=== PATIENT | female | born 1980 | race Two or more races ===

== ENCOUNTER 2016-10-20 07:08 | Emergency (ER) | payer MEDICAID ==
[~2016-10-20] VITALS: Ht 165.1 cm; Wt 77.1 kg
[~2016-10-20 07:08] MED LIST: CHOL200010 PO; FAM20T PO; FERR-7 PO; IBU800T PO; POTA-167 PO
[2016-10-20 08:26] LABS: Basophils # (auto) 0 uL; Basophils % (auto) 0.4 % (0.0-2.0); DEFINITIVE VIEW TRANSMISSION; Eosinophils # (auto) 0.1 uL; Hematocrit 33.7 % (36.0-46.0); Hemoglobin 10.8 g/dL (12.2-16.2); Lymphocytes # (auto) 2.2 uL; Lymphocytes % (auto) 26.8 % (10.0-50.0); Mean Corpuscular Hemoglobin 25.1 pg (28.0-32.0); Mean Corpuscular Volume 78.6 fL (80.0-100.0); Monocytes # (auto) 0.6 uL; Monocytes % (auto) 6.8 % (0.0-12.0); Neutrophils # (auto) 5.3 uL; Platelet Count (auto) 313 10^3/uL (140-450); Red Cell Distribution Width 17.2 % (11.6-16.0); White Blood Cell 8.1 10^3/uL (4.4-10.8)
[2016-10-20 08:47] LABS: Albumin 3.2 g/dL (3.4-5.0); BUN/Creatinine Ratio 21.1; Calcium 8.6 mg/dL (8.5-10.1); Potassium 3.9 mmol/L (3.5-5.1)
[2016-10-20 08:50] LABS: Bilirubin, Total 0.4 mg/dL (0.2-1.0); Total Protein 7.7 g/dL (6.4-8.2)
[2016-10-20] MEDS ORDERED: HYDROmorphone HCL 2 MG/ML VL IV ONE (12:15)
[2016-10-20] MEDS ORDERED: SODIUM CHLORIDE 0.9% 1,000 ML IV ONE (12:15)
[2016-10-20] MEDS ORDERED: ONDANSETRON HCL 4 MG/2 ML VIAL IV ONE (12:15)
[2016-10-20 13:26] LABS: Urine Bilirubin Negative (Negative); Urine Color Red (Yellow); Urine Glucose Normal (Normal); Urine Ketone Negative (Negative); Urine Mucus FEW (None Seen); Urine Nitrite Negative (Negative); Urine RBC 1182 /hpf (0 - 4); Urine Squamous Epithelial Cell FEW /hpf (<5); Urine Urobilinogen Normal (Negative); Urine pH 5.5 (5.0-8.0)
[2016-10-20 13:27] LABS: Urine Blood 3+ /uL (Negative)
[2016-10-20 13:51] VITALS: BP 121/77
== END 2016-10-20 15:33 | disposition home or self-care (01) ==
LOC: ER 07:08
DX: N39.0 Urinary tract infection, site not specified (principal); Z85.038 Personal history of other malignant neoplasm of large intestine; K91.2 Postsurgical malabsorption, not elsewhere classified; Z88.1 Allergy status to other antibiotic agents; Z88.6 Allergy status to analgesic agent
CPT/HCPCS: 36415; 74176; 80053; 81001; 85025; 96361; 96374; 96375; 99285; J1170; J2405; J7030

== ENCOUNTER 2017-01-19 17:47 | Emergency (ER) | payer MEDICAID ==
[~2017-01-19] VITALS: Ht 165.1 cm; Wt 80.7 kg
[~2017-01-19 17:47] MED LIST changes: -IBU800T PO; +IBUP800T24 PO
[2017-01-19] MEDS ORDERED: KETOROLAC TROMETH 60MG/2ML VIAL IM ONE (18:15)
[2017-01-19 19:28] VITALS: BP 114/76
== END 2017-01-19 20:09 | disposition home or self-care (01) ==
LOC: ER 17:48
DX: M25.531 Pain in right wrist (principal); Z88.6 Allergy status to analgesic agent; Z88.1 Allergy status to other antibiotic agents; Z98.51 Tubal ligation status; V49.40XA Driver injured in collision with unspecified motor vehicles in traffic accident, initial encounter; Y93.89 Activity, other specified; Y99.8 Other external cause status; Y92.89 Other specified places as the place of occurrence of the external cause
CPT/HCPCS: 73110; 96372; 99284; J1885

== ENCOUNTER 2017-09-18 17:15 | Emergency (ER) | payer MEDICAID, OTHER ==
[~2017-09-18] VITALS: Ht 165.1 cm; Wt 81.2 kg
[~2017-09-18 17:15] MED LIST changes: -CHOL200010 PO; -FAM20T PO; -FERR-7 PO; -POTA-167 PO
[2017-09-18 18:59] LABS: Eosinophils # (auto) 0.1 uL; Eosinophils % (auto) 0.8 % (0.0-7.0); Hemoglobin 11.2 g/dL (12.2-16.2); Monocytes # (auto) 0.7 uL; Monocytes % (auto) 6.5 % (0.0-12.0); Nucleated Red Blood Cells % 0.1 %; White Blood Cell 10.1 10^3/uL (4.4-10.8)
[2017-09-18 19:00] LABS: Basophils # (auto) 0.1 uL; Basophils % (auto) 0.6 % (0.0-2.0); Hematocrit 34.4 % (36.0-46.0); Lymphocytes % (auto) 19.9 % (10.0-50.0); Mean Corpuscular Hemoglobin 26.1 pg (28.0-32.0); Mean Corpuscular Hgb Conc. 32.6 g/dL (32.0-36.0); Mean Corpuscular Volume 80.2 fL (80.0-100.0); Neutrophils # (auto) 7.3 uL; Neutrophils % (auto) 72.2 % (37.0-80.0); Platelet Count (auto) 268 10^3/uL (140-450); Red Blood Cells 4.29 10^6/uL (4.0-5.20); Red Cell Distribution Width 16.9 % (11.8-14.3)
[2017-09-18 19:21] LABS: Albumin 3.7 g/dL (3.4-5.0); BUN/Creatinine Ratio 13.2; Bilirubin, Total 0.3 mg/dL (0.2-1.0); Calcium 8.8 mg/dL (8.5-10.1); Potassium 3.5 mmol/L (3.5-5.1); Total Protein 8.1 g/dL (6.4-8.2)
[2017-09-18 19:59] LABS: Urine Bacteria FEW /hpf (None Seen); Urine Blood Negative /uL (Negative); Urine Mucus FEW (None Seen); Urine Specific Gravity 1.012 (1.001-1.035); Urine WBC 1 /hpf (0 - 5)
[2017-09-19] MEDS ORDERED: HYDROcodone-ACET 10/325MG TAB PO ONE (02:45)
[2017-09-19] MEDS ORDERED: IOHEXOL 300 MG/ML 100ML BOTTLE IJ ONE (08:34)
[2017-09-19 11:02] VITALS: BP 100/71
== END 2017-09-19 12:27 | disposition home or self-care (01) ==
LOC: ER 17:24
DX: E86.0 Dehydration (principal); R51 Headache; Z98.890 Other specified postprocedural states; Z98.51 Tubal ligation status
CPT/HCPCS: 36415; 71046; 74177; 80053; 81001; 81025; 84550; 85025; 85379; 93005; 99284; Q9967

== ENCOUNTER 2018-09-11 16:56 | Emergency (ER) | payer MEDICAID ==
[~2018-09-11] VITALS: Ht 165.1 cm; Wt 81.6 kg
[2018-09-11 17:53] LABS: Basophils # (auto) 0 uL; Basophils % (auto) 0.5 % (0.0-2.0); Eosinophils # (auto) 0.2 uL; Hematocrit 35.8 % (36.0-46.0); Hemoglobin 11.6 g/dL (12.2-16.2); Lymphocytes # (auto) 2.1 uL; Lymphocytes % (auto) 32.4 % (10.0-50.0); Mean Corpuscular Hemoglobin 27.6 pg (28.0-32.0); Mean Corpuscular Hgb Conc. 32.3 g/dL (32.0-36.0); Mean Corpuscular Volume 85.6 fL (80.0-100.0); Monocytes # (auto) 0.4 uL; Neutrophils # (auto) 3.7 uL; Neutrophils % (auto) 58.1 % (37.0-80.0); Nucleated Red Blood Cells % 0.1 %; Platelet Count (auto) 284 10^3/uL (140-450); Red Blood Cells 4.18 10^6/uL (4.0-5.20); Red Cell Distribution Width 16.8 % (11.8-14.3); White Blood Cell 6.4 10^3/uL (4.4-10.8)
[2018-09-11 18:03] LABS: Potassium 3.2 mmol/L (3.5-5.1)
[2018-09-11 18:07] LABS: Albumin 3.5 g/dL (3.4-5.0); Calcium 8.5 mg/dL (8.5-10.1)
[2018-09-11 18:11] LABS: Bilirubin, Total 0.3 mg/dL (0.2-1.0); Total Protein 7.5 g/dL (6.4-8.2)
[2018-09-11] MEDS ORDERED: POTASSIUM CHL 10% (20 MEQ/15ML) 15ml ORAL SOLN PO ONE (19:15)
[2018-09-11 21:24] VITALS: BP 131/95
[2018-09-11] MEDS ORDERED: ONDANSETRON HCL 4 MG/2 ML VIAL ONE (21:49)
[2018-09-11] MEDS ORDERED: ONDANSETRON HCL 4 MG/2 ML VIAL IV ONE (22:00)
== END 2018-09-11 22:09 | disposition home or self-care (01) ==
LOC: ER 16:56
DX: E87.6 Hypokalemia (principal); Z98.51 Tubal ligation status; Z85.038 Personal history of other malignant neoplasm of large intestine; Z88.1 Allergy status to other antibiotic agents; Z88.6 Allergy status to analgesic agent
CPT/HCPCS: 36415; 74176; 80053; 83690; 85025; 96374; 99284; J2405

== ENCOUNTER 2019-11-14 17:46 | Inpatient (IN) | payer MEDICAID ==
[~2019-11-14] VITALS: Ht 167.6 cm; Wt 90.6 kg
[2019-11-14 18:33] LABS: Basophils # (auto) 0 10 ^3/uL (0-0.2); Basophils % (auto) 0.7 % (0.0-2.0); Eosinophils # (auto) 0.1 10 ^3/uL (0-0.8); Eosinophils % (auto) 1.4 % (0.0-7.0); Hematocrit 36.2 % (36.0-46.0); Lymphocytes # (auto) 2.5 10 ^3/uL (0.4-5.4); Lymphocytes % (auto) 36.9 % (10.0-50.0); Mean Corpuscular Hemoglobin 29.2 pg (28.0-32.0); Mean Corpuscular Hgb Conc. 33.3 g/dL (32.0-36.0); Mean Corpuscular Volume 87.7 fL (80.0-100.0); Monocytes # (auto) 0.4 10 ^3/uL (0-1.3); Neutrophils # (auto) 3.7 10 ^3/uL (1.6-8.6); Platelet Count (auto) 268 10^3/uL (140-450); Red Blood Cells 4.12 10^6/uL (4.0-5.20); Red Cell Distribution Width 14.8 % (11.8-14.3); White Blood Cell 6.7 10^3/uL (4.4-10.8)
[2019-11-14 18:48] LABS: Alanine Aminotransferase 39 U/L (13-56); Albumin 3.4 g/dL (3.4-5.0); Anion Gap 5 (5-15); Aspartate Aminotransferase 20 U/L (15-37); BUN/Creatinine Ratio 19.4; Blood Urea Nitrogen 12 mg/dL (7-18); Calcium 8.4 mg/dL (8.5-10.1); Carbon Dioxide 29 mmol/L (21-32); Chloride 105 mmol/L (98-107); GFR African American 136 mL/min; GFR Non-African American 113 mL/min; Glucose 111 mg/dL (74-106); Potassium 3.4 mmol/L (3.5-5.1); Sodium 139 mmol/L (136-145)
[2019-11-14 18:53] LABS: Alkaline Phosphatase 103 U/L (45-117); Bilirubin, Total 0.4 mg/dL (0.2-1.0); Total Protein 7.3 g/dL (6.4-8.2)
[2019-11-14] MEDS: SODIUM CHLORIDE 0.9% 1,000 ML IV SCH (22:11)
[2019-11-14] MEDS ORDERED: NITROGLYCERIN 0.4 MG SL TAB SL PRN (22:15)
[2019-11-14] MEDS ORDERED: LORazepam 0.5 MG TAB PO PRN (22:15)
[2019-11-14] MEDS ORDERED: ONDANSETRON HCL 4 MG/2 ML VIAL IV PRN (22:15)
[2019-11-14] MEDS ORDERED: ZOLPIDEM TARTRATE 5 MG TAB PO PRN (22:15)
[2019-11-15] MEDS: ACETAMINOPHEN 325 MG TAB PO PRN ×2 (01:20→18:40)
[2019-11-15 05:00] VITALS: BP 100/67
[2019-11-15 07:21] LABS: Basophils # (auto) 0 10 ^3/uL (0-0.2); Basophils % (auto) 0.3 % (0.0-2.0); Eosinophils # (auto) 0.1 10 ^3/uL (0-0.8); Eosinophils % (auto) 1.6 % (0.0-7.0); Hematocrit 35.5 % (36.0-46.0); Hemoglobin 11.8 g/dL (12.2-16.2); Lymphocytes % (auto) 32.2 % (10.0-50.0); Mean Corpuscular Hemoglobin 28.9 pg (28.0-32.0); Mean Corpuscular Hgb Conc. 33.2 g/dL (32.0-36.0); Mean Corpuscular Volume 87.3 fL (80.0-100.0); Monocytes # (auto) 0.3 10 ^3/uL (0-1.3); Monocytes % (auto) 5.5 % (0.0-12.0); Neutrophils # (auto) 3.7 10 ^3/uL (1.6-8.6); Neutrophils % (auto) 60.4 % (37.0-80.0); Platelet Count (auto) 256 10^3/uL (140-450); Red Blood Cells 4.07 10^6/uL (4.0-5.20); Red Cell Distribution Width 14.8 % (11.8-14.3); White Blood Cell 6.1 10^3/uL (4.4-10.8)
[2019-11-15 07:32] LABS: BUN/Creatinine Ratio 19.6; Potassium 3.5 mmol/L (3.5-5.1)
[2019-11-15 08:00] VITALS: BP 101/69
[2019-11-15 08:51] VITALS: BP 101/69
[2019-11-15] MEDS: DOCUSATE SOD 100 MG CAP PO SCH (10:00)
[2019-11-15] MEDS: ASPirin 81 mg TAB PO SCH (11:12)
[2019-11-15] MEDS: CLOPIDOGREL BISULFATE 75 MG TAB PO SCH (11:13)
[2019-11-15] MEDS: CARVEDILOL 3.125 MG TAB PO SCH ×2 (11:13→22:00)
[2019-11-15] MEDS: LISINOPRIL 10 MG TAB PO SCH (11:14)
[2019-11-15] MEDS: SODIUM CHLORIDE 0.9% 1,000 ML IV SCH (11:14)
[2019-11-15] MEDS ORDERED: IOHEXOL 350 MG/ML 100ML IJ ONE (12:30)
[2019-11-15 13:02] VITALS: BP 108/71
[2019-11-15] MEDS ORDERED: diphenhdrAMINE HCL 50 MG/1 ML VL IM ONE (13:30)
[2019-11-15] MEDS ORDERED: DexAMETHasone SOD PHOS 4 MG/1ML SDV INJ IV ONE (13:30)
[2019-11-15 16:46] VITALS: BP 111/65
[2019-11-15 22:00] VITALS: BP 100/62
[2019-11-15] MEDS: ATORVASTATIN 20 MG TAB PO SCH (22:00)
[2019-11-16 05:00] VITALS: BP 107/79
[2019-11-16] MEDS: SODIUM CHLORIDE 0.9% 1,000 ML IV SCH ×2 (05:30→14:30)
[2019-11-16 06:36] LABS: Basophils # (auto) 0 10 ^3/uL (0-0.2); Basophils % (auto) 0.1 % (0.0-2.0); Eosinophils # (auto) 0 10 ^3/uL (0-0.8); Eosinophils % (auto) 0.1 % (0.0-7.0); Hemoglobin 11.9 g/dL (12.2-16.2); Lymphocytes # (auto) 2.1 10 ^3/uL (0.4-5.4); Lymphocytes % (auto) 23.9 % (10.0-50.0); Mean Corpuscular Hemoglobin 29.2 pg (28.0-32.0); Mean Corpuscular Volume 88.6 fL (80.0-100.0); Monocytes # (auto) 0.4 10 ^3/uL (0-1.3); Monocytes % (auto) 4.8 % (0.0-12.0); Neutrophils # (auto) 6.1 10 ^3/uL (1.6-8.6); Neutrophils % (auto) 71.1 % (37.0-80.0); Nucleated Red Blood Cells % 0.1 %; Platelet Count (auto) 245 10^3/uL (140-450); Red Blood Cells 4.06 10^6/uL (4.0-5.20); Red Cell Distribution Width 14.9 % (11.8-14.3); White Blood Cell 8.6 10^3/uL (4.4-10.8)
[2019-11-16 06:47] LABS: Potassium 3.5 mmol/L (3.5-5.1)
[2019-11-16 07:13] LABS: BUN/Creatinine Ratio 13.8; Calcium 8.6 mg/dL (8.5-10.1)
[2019-11-16] MEDS: DOCUSATE SOD 100 MG CAP PO SCH (10:00)
[2019-11-16] MEDS: CLOPIDOGREL BISULFATE 75 MG TAB PO SCH (10:00)
[2019-11-16] MEDS: ASPirin 81 mg TAB PO SCH (10:00)
[2019-11-16] MEDS: LISINOPRIL 10 MG TAB PO SCH (10:00)
[2019-11-16] MEDS ORDERED: KETOROLAC TROMETH 30 MG/ML 1ML VIAL IV PRN (10:00)
[2019-11-16 10:58] VITALS: BP 122/76
[2019-11-16 13:00] VITALS: BP 113/68
[2019-11-16 17:00] VITALS: BP 100/57
[2019-11-16] MEDS: ATORVASTATIN 20 MG TAB PO SCH (21:18)
[2019-11-16] MEDS: ACETAMINOPHEN 325 MG TAB PO PRN (21:19)
[2019-11-16 22:00] VITALS: BP 103/75
[2019-11-17] MEDS: SODIUM CHLORIDE 0.9% 1,000 ML IV SCH ×2 (03:31→16:51)
[2019-11-17 05:00] VITALS: BP 113/66
[2019-11-17] MEDS ORDERED: ADENOSINE 76 MG in GIVE UN-DILUTED 0 ML IV STA (08:40)
[2019-11-17 08:52] VITALS: BP 109/69
[2019-11-17 09:44] VITALS: BP 118/74
[2019-11-17] MEDS: DOCUSATE SOD 100 MG CAP PO SCH (10:00)
[2019-11-17] MEDS: ASPirin 81 mg TAB PO SCH (12:49)
[2019-11-17] MEDS: CLOPIDOGREL BISULFATE 75 MG TAB PO SCH (12:49)
[2019-11-17] MEDS: LISINOPRIL 10 MG TAB PO SCH (12:49)
[2019-11-17 13:00] VITALS: BP 112/72
[2019-11-17 15:07] VITALS: BP 112/72
[2019-11-17 17:00] VITALS: BP 98/51
== END 2019-11-17 17:40 | disposition home or self-care (01) | DRG 203 ==
LOC: ER 17:46 → TELE 17:47 → TELE-EAST 23:47
PROVIDERS: ADMIT Hospitalist; ATTEND Internal Medicine
DX: M94.0 Chondrocostal junction syndrome [Tietze] (principal); D64.9 Anemia, unspecified; J45.909 Unspecified asthma, uncomplicated; E87.6 Hypokalemia; Z85.038 Personal history of other malignant neoplasm of large intestine; Z83.3 Family history of diabetes mellitus; Z82.49 Family history of ischemic heart disease and other diseases of the circulatory system; Z81.8 Family history of other mental and behavioral disorders; Z82.0 Family history of epilepsy and other diseases of the nervous system; Z84.89 Family history of other specified conditions; E66.9 Obesity, unspecified; E78.5 Hyperlipidemia, unspecified; I70.0 Atherosclerosis of aorta; Z90.49 Acquired absence of other specified parts of digestive tract; Z98.51 Tubal ligation status; E78.1 Pure hyperglyceridemia
CPT/HCPCS: 36415; 70450; 71045; 71275; 78452; 80048; 80053; 80061; 84484; 84702; 85025; 93005; 93017; 93306; G0378; J0153; J1100

== ENCOUNTER 2025-02-08 13:31 | Inpatient (IN) | payer MEDICAID ==
[~2025-02-08] VITALS: Ht 165.1 cm; Wt 82.0 kg
[~2025-02-08 13:31] MED LIST changes: +IBUP-1455 PO; -IBUP800T24 PO
--- NOTE | 2025-02-08 14:12 | ED.PDOC ---
History of Present Illness HPI Comments 44-year-old female with history of colon cancer in remission status post partial colectomy, short bowel syndrome and TIAs presenting complaining of lower abdominal pain, nausea, vomiting, diarrhea and inability to tolerate p.o. food or liquids for the past 2 days. Patient states lower abdominal pain is described as cramping and intermittent. She also reports a left periorbital headache and intermittent left eye visual disturbances, noting she had similar symptoms with prior TIAs. She denies any fever, dysuria, current vision changes or focal weakness. Chief Complaint: Nausea/Vomiting Time Seen by MD: 13:43 Primary Care Provider: DOMINGA Allergies: Coded Allergies: Vancomycin (Verified Allergy, Intermediate, RASH AND ITCHING, 01/11/14) Codeine (Verified Allergy, Mild, 03/21/10) Uncoded Allergies: dye from CT SCAN & VQ scan (Allergy, Unknown, hives, 11/16/19) Home Meds Reported Medications Ibuprofen Micronized (Ibuprofen) 800 Mg Tab, 800 MG PO Q6HPRN PRN for MILD PAIN, TAB 04/09/16 Mode of Arrival: Ambulatory Past Medical History PAST MEDICAL HISTORY: Anemia, Cancer, TIA Past Medical History (Other): Short bowel syndrome Surgical History: BTL, , Tubal Ligation Surgical History (Other): Partial colectomy LEGAL AID History: No Pertinent LEGAL AID History Family History Family History: Unknown Social History Smoker: Non-Smoker Alcohol: Denies ETOH Use Drugs: Denies Drug Use Lives In: Home All Other Systems: Reviewed and Negative (Comprehensive systems review obtained and negative except for what is stated in the HPI.) Physical Exam General Appearance: No Apparent Distress HEENT: PERRL/EOMI, Other (Pupils and face symmetric. Moist mucous membranes.) Neck: Full Range of Motion, Normal Inspection Respiratory: Lungs Clear, No Accessory Muscle Use, No Respiratory Distress, Normal Breath Sounds Cardiovascular: No Edema, No JVD, Regular Rate/Rhythm Breast Exam: Deferred Gastrointestinal: LLQ, RLQ, Soft, Suprapubic, Tenderness Genitalia: Deferred Pelvic: Deferred Rectal: Deferred Extremities: Normal inspection, Normal range of motion, Non-tender, No pedal edema Neurologic: Alert (Oriented x4), merchandise marker II-XII nml as Tested, Normal Affect, Normal Mood, Other (Ambulatory. No gross focal deficit.) Cerebellar Function: NOT DONE Reflexes: NOT DONE Skin: Dry, Normal Color, Warm Lymphatic: NOT DONE Was a procedure done? Was a procedure done?: No Differential Dx Considerations may include: Enteritis, colitis, diverticular disease, UTI, electrolyte imbalance, dehydra tion, ischemic bowel, TIA, CVA, metabolic headache, among others X-Ray, Labs, Meds, VS Vital Signs Date Time Temp Pulse Resp B/P (MAP) Pulse Ox O2 Delivery O2 Flow Rate FiO2 02/08/25 13:34 98.6 79 18 127/79 97 98.6 Lab Test 02/08/25 15:21 02/08/25 14:19 Range/Units Troponin I High Sensitivity < 3 L < 3 L </=34 ng/L White Blood Count 7.0 4.4-10.8 10^3/uL Red Blood Count 4.20 4.0-5.20 10^6/uL Hemoglobin 11.3 L 12.2-16.2 g/dL Hematocrit 34.6 L 36.0-46.0 % Mean Corpuscular Volume 82.5 80.0-100.0 fL Mean Corpuscular Hemoglobin 26.9 L 28.0-32.0 pg Mean Corpuscular Hemoglobin Concent 32.6 32.0-36.0 g/dL Red Cell Distribution Width 17.2 H 11.8-14.3 % Platelet Count 301 140-450 10^3/uL Mean Platelet Volume 8.1 6.9-10.8 fL Neutrophils (%) (Auto) 58.1 37.0-80.0 % Lymphocytes (%) (Auto) 35.0 10.0-50.0 % Monocytes (%) (Auto) 5.3 0.0-12.0 % Eosinophils (%) (Auto) 1.2 0.0-7.0 % Basophils (%) (Auto) 0.4 0.0-2.0 % Neutrophils # (Auto) 4.1 1.6-8.6 10 ^3/uL Lymphocytes # (Auto) 2.5 0.4-5.4 10 ^3/uL Monocytes # (Auto) 0.4 0-1.3 10 ^3/uL Eosinophils # (Auto) 0.1 0-0.8 10 ^3/uL Basophils # (Auto) 0 0-0.2 10 ^3/uL Nucleated Red Blood Cells 0.1 % Sodium Level 138 136-145 mmol/L Potassium Level 3.7 3.5-5.1 mmol/L Chloride Level 103 98-107 mmol/L Carbon Dioxide Level 25 20-31 mmol/L Anion Gap 10 5-15 Blood Urea Nitrogen 6 L 9-23 mg/dL Creatinine 0.65 0.550-1.02 mg/dL Glomerular Filtration Rate Calc 110 >90 mL/min BUN/Creatinine Ratio 9.2 L 10.0-20.0 Serum Glucose 98 74-106 mg/dL Lactic Acid Level 1.3 0.4-2.0 mmol/L Calcium Level 9.3 8.7-10.4 mg/dL Total Bilirubin 0.4 0.2-1.0 mg/dL Aspartate Amino Transferase (AST) 24 13-40 U/L Alanine Aminotransferase (ALT) 31 7-40 U/L Alkaline Phosphatase 87 46-116 U/L Total Protein 7.6 5.7-8.2 g/dL Albumin 4.3 3.2-4.8 g/dL [place] [address] Ph: [phone] DIAGNOSTIC IMAGING Diagnostic Imaging Report : [id number] Signed PATIENT: KENROY MACIAS LACCT: [id number] UNIT: [id number] : 1980 LOC: ER ROOM / BED: / AGE / SEX: 44 / F ADM STATUS: REG ER SERVICE [id number] ORDERING PHYSICIAN: FIDELIA VANESSA MD PROCEDURE(s): HWOCT - HEAD WITHOUT CONTRAST REASON: Dizzy,left periorbital NOE,intermittent L eye blurred vision ORDER NUMBER(s): [id number], ACCESSION NUMBER(s): [id number] EXAM: CT HEAD WITHOUT CONTRAST INDICATION: Dizzy,left periorbital NOE,intermittent L eye blurred vision TECHNIQUE: CT of the head without intravenous contrast. Radiation Dose : 1. Head: CT Dose: CTDI volume is 56.35 mGy. Dose-length product is 2325.94 mGy*cm The dose indicators for CT are the volume Computed Tomography (CT) Dose Index (CTDIvol) and the Dose Length Product (DLP), and are measured in units of mGy and mGy-cm, respectively. These indicators are not patient dose, but values generated from the CT scanner acquisition factors. The report includes radiation exposure data for exposures received during this examination. COMPARISON: None FINDINGS: There is no evidence of acute intracranial hemorrhage, extra-axial collection, mass effect, midline shift, herniation or hydrocephalus. The ventricles, sulci and cisterns are age appropriate. The smith-white differentiation is intact. The visualized paranasal sinuses and mastoid air cells are clear. The surrounding soft tissues and osseous structures are unremarkable. IMPRESSION: No acute intracranial abnormality. Radiation optimization: All CT scans at this facility use at least one of these dose optimization techniques: automated exposure control mA and/or kV adjustment per patient size (includes targeted exams where dose is matched to clinical indication) or iterative reconstruction. ATED BY: ALOK MUNOZ MD DICTATED DATE/TIME: 02/08/251446 SIGNED BY: ALOK MUNOZ MD SIGNED DATE/TIME: 02/08/251446 CC: [place] [address] Ph: [phone] DIAGNOSTIC IMAGING Diagnostic Imaging Report : [id number] Signed PATIENT: KENROY MACIAS LACCT: [id number] UNIT: [id number] : 1980 LOC: ER ROOM / BED: / AGE / SEX: 44 / F ADM STATUS: REG ER SERVICE [id number] ORDERING PHYSICIAN: FIDELIA VANESSA MD PROCEDURE(s): ABPL - CT AB PEL WO CON-NO ORAL OR IV REASON: Low AP, N/V/D, short bowel syndrome s/p partial colectomy ORDER NUMBER(s): [id number], ACCESSION NUMBER(s): [id number] Exam: CT CT AB PEL WO CON-NO ORAL OR IV History: Low AP, N/V/D, short bowel syndrome s/p partial colectomy Comparison Study: None TECHNIQUE: Multidetector CT of the abdomen and pelvis without IV contrast. Axial, coronal and sagittal multiplanar reformats were obtained from the axial data set by the technologist. Radiation Dose Information: CT Dose: CTDI volume is 56.35 mGy. Dose-length product is 2325.94 mGy*cm FINDINGS: Bibasilar atelectasis. Partially visualized heart is unremarkable. Mild hepatomegaly with hepatic steatosis. The gallbladder is decompressed. Spleen, pancreas and adrenal glands unremarkable. Kidneys, ureters and urinary bladder unremarkable. Uterus is unremarkable. 3.1 cm left ovarian cyst with additional sub 2 cm dominant follicles. Stomach is unremarkable. Small bowel loops unremarkable. Appendix is not definitely visualized. Rectal and rectosigmoid wall thickening. Moderate to large amount of mainly liquid stool and gas within the colon. Postsurgical changes of partial right hemicolectomy with anastomosis of the right upper abdominal quadrant. Distention of the proximal large bowel up to 7.4 cm. Metallic focus with Streak artifact is noted over the right lower abdominal quadrant which appears to be extra luminal. No evidence of intraperitoneal free air or free fluid. No evidence of aortic aneurysm. No significant lymphadenopathy. Tiny fat containing umbilical hernia. Nonspecific midline upper abdominal nodular skin thickening. Soft tissues are otherwise unremarkable. No evidence of acute osseous abnormalities. Metallic density with Streak artifact is noted over the right lower abdominal quadrant which appears to be extra luminal. IMPRESSION: Rectal wall thickening. Correlate for proctitis. Moderate to large amount of liquid stool and gas within the colon. Correlate for diarrheal state. Postsurgical changes of right hemicolectomy with distention of the large bowel of the hepatic flexure up to 7.4 cm. Left ovarian cyst. ATED BY: CAROL LOVE DO DICTATED DATE/TIME: 02/08/25 1501 SIGNED BY: CAROL LOVE DO SIGNED DATE/TIME: 02/08/25 1501 CC: X-Ray, Labs, Meds, VS Comment 44-year-old female with a history of colon CA status post partial colectomy, short bowel syndrome and TIAs complaining of lower abdominal pain, nausea, vomiting, diarrhea, inability to tolerate p.o. food or liquids, associated with left periorbital headache and transient left eye vision changes Vitals unremarkable Exam remarkable for lower abdominal tenderness to palpation. No focal neurologic deficit Rhythm strip independently interpreted by me: Sinus rhythm, rate 79, no ectopy. CT head remarkable CT abdomen and pelvis rectal wall thickening possible proctitis CBC, CMP, lactate and troponin unremarkable. UA pending. Patient treated with the following in the ED: 30 cc/kilogram normal saline IV bolus, morphine 4 mg IV, Zofran 4 mg IV, Zosyn 4.5 g IV On re-evaluation, patient states pain has improved. Vitals were stable. No new neurologic changes. Plan is to admit the patient for IV antibiotics and GI evaluation. Time of 1ST Reevaluation: 14:11 Reevaluation 1ST: Unchanged Patient Education/Counseling: Diagnosis, Treatment, Need For Follow Up Family Education/Counseling: No Family Present SEPSIS Sepsis Screen Date sepsis recognized/suspect: Feb 08, 2025 Time Sepsis recognized/suspect: 1333 Recent Procedure: No On Antibiotic Therapy: No Respiratory Rate >20: No Heart Rate >90: No Temp<36 C (96.8 F) or >38.3 C: No SBP <90 or MAP <65 mmHG: No New Acute Mental Status Change: No Is the patient on CPAP, BIPAP,: No Physician Orders Urinalysis (02/08/25 13:58) Blood Culture (02/08/25 13:58) Electrocardigram (02/08/25 13:58) Head Without Contrast (02/08/25 13:58) Ct Ab Pel Wo Con-No Oral Or Iv (02/08/25 13:58) Vital Signs Date Time Temp Pulse Resp B/P (MAP) Pulse Ox O2 Delivery O2 Flow Rate FiO2 02/08/25 13:34 98.6 79 18 127/79 97 98.6 Laboratory Tests Test 02/08/25 14:19 Lactic Acid Level 1.3 mmol/L (0.4-2.0) White Blood Count 7.0 10^3/uL (4.4-10.8) Departure 1 Departure Time of Disposition: 15:30 Impression: Primary Impression: Proctitis Additional Impression: Headache Qualified Codes: R51.9 - Headache, unspecified Disposition: 09 ADMITTED INPATIENT Admit to: Med Surg Condition: Guarded Critical Care Note Critical Care Time?: No Stability Stability form required: No Heart Score Heart Score: Heart Score Response (Comments) Value History N/A 0 EKG N/A 0 Age N/A 0 Risk Factors N/A 0 Troponin N/A 0 Total 0 I personally scribed for FIDLEIA VANESSA MD ([email or web address]) on 02/08/25 at 15:12. Electronically submitted by Rosales Jean-Baptiste ([email or web address]). FIDELIA VANESSA MD Feb 08, 2025 14:12
--- NOTE | 2025-02-08 14:50 | DVH ---
EXAM: CT HEAD WITHOUT CONTRAST INDICATION: Dizzy,left periorbital NOE,intermittent L eye blurred vision TECHNIQUE: CT of the head without intravenous contrast. Radiation Dose : 1. Head: CT Dose: CTDI volume is 56.35 mGy. Dose-length product is 2325.94 mGy*cm The dose indicators for CT are the volume Computed Tomography (CT) Dose Index (CTDIvol) and the Dose Length Product (DLP), and are measured in units of mGy and mGy-cm, respectively. These indicators are not patient dose, but values generated from the CT scanner acquisition factors. The report includes radiation exposure data for exposures received during this examination. COMPARISON: None FINDINGS: There is no evidence of acute intracranial hemorrhage, extra-axial collection, mass effect, midline s hift, herniation or hydrocephalus. The ventricles, sulci and cisterns are age appropriate. The smith-white differentiation is intact. The visualized paranasal sinuses and mastoid air cells are clear. The surrounding soft tissues and osseous structures are unremarkable. IMPRESSION: No acute intracranial abnormality. Radiation optimization: All CT scans at this facility use at least one of these dose optimization lilibeth hniques: automated exposure control mA and/or kV adjustment per patient size (includes targeted exam s where dose is matched to clinical indication) or iterative reconstruction.
[2025-02-08 14:51] LABS: Hematocrit 34.6 % (36.0-46.0); Hemoglobin 11.3 g/dL (12.2-16.2); Mean Corpuscular Hemoglobin 26.9 pg (28.0-32.0); Mean Corpuscular Volume 82.5 fL (80.0-100.0); Nucleated Red Blood Cells % 0.1 %
--- NOTE | 2025-02-08 15:04 | DVH ---
Exam: CT CT AB PEL WO CON-NO ORAL OR IV History: Low AP, N/V/D, short bowel syndrome s/p partial colectomy Comparison Study: None TECHNIQUE: Multidetector CT of the abdomen and pelvis without IV contrast. Axial, coronal and sagitta l multiplanar reformats were obtained from the axial data set by the technologist. Radiation Dose Information: CT Dose: CTDI volume is 56.35 mGy. Dose-length product is 2325.94 mGy*cm FINDINGS: Bibasilar atelectasis. Partially visualized heart is unremarkable. Mild hepatomegaly with hepatic steatosis. The gallbladder is decompressed. Spleen, pancreas and adren al glands unremarkable. Kidneys, ureters and urinary bladder unremarkable. Uterus is unremarkable. 3.1 cm left ovarian cyst w ith additional sub 2 cm dominant follicles. Stomach is unremarkable. Small bowel loops unremarkable. Appendix is not definitely visualized. Recta l and rectosigmoid wall thickening. Moderate to large amount of mainly liquid stool and gas within th e colon. Postsurgical changes of partial right hemicolectomy with anastomosis of the right upper abdo aide quadrant. Distention of the proximal large bowel up to 7.4 cm. Metallic focus with Streak artifact is noted over the right lower abdominal quadrant which appears to be extra luminal. No evidence of intraperitoneal free air or free fluid. No evidence of aortic aneurysm. No significant lymphadenopathy. Tiny fat containing umbilical hernia. Nonspecific midline upper abdominal nodular skin thickening. So ft tissues are otherwise unremarkable. No evidence of acute osseous abnormalities. Metallic density w ith Streak artifact is noted over the right lower abdominal quadrant which appears to be extra lumina l. IMPRESSION: Rectal wall thickening. Correlate for proctitis. Moderate to large amount of liquid stool and gas within the colon. Correlate for diarrheal state. Postsurgical changes of right hemicolectomy with distention of the large bowel of the hepatic flexure up to 7.4 cm. Left ovarian cyst.
[2025-02-08 15:08] LABS: Alanine Aminotransferase 31 U/L (7-40); Albumin 4.3 g/dL (3.2-4.8); Alkaline Phosphatase 87 U/L (46-116); Anion Gap 10 (5-15); BUN/Creatinine Ratio 9.2 (10.0-20.0); Calcium 9.3 mg/dL (8.7-10.4); Carbon Dioxide 25 mmol/L (20-31); Chloride 103 mmol/L (98-107); Glucose 98 mg/dL (74-106); Potassium 3.7 mmol/L (3.5-5.1); Sodium 138 mmol/L (136-145); Total Protein 7.6 g/dL (5.7-8.2)
[2025-02-08 15:09] LABS: Bilirubin, Total 0.4 mg/dL (0.2-1.0); Blood Urea Nitrogen 6 mg/dL (9-23)
[2025-02-08] MEDS: SODIUM CHLORIDE 0.9% 1,700 ML IV ONE (18:39)
[2025-02-08 21:45] LABS: Urine Protein, UAD Negative (Negative)
--- NOTE | 2025-02-08 23:38 | DVHHPRES ---
History of Present Illness Resident Creating Document: OSVALDO ALMONTE RESIDENT History of Present Illness History of Present Illness (HPI): Na Chávez is a 44-year-old female with a significant past medical history including colon resection in 2013, esophageal and colonic polyps, short-bowel syndrome, hypertension, and dyslipidemia presented with complaints of pain localized to the left side of the head and abdominal pain, both of which have been ongoing for the past two days. She describes the head pain as dull, constant, and severe, rating it 10 out of 10 in intensity, with no identifiable aggravating or relieving factors. The abdominal pain is accompanied by episodes of vomiting and watery diarrhea. She also reports a sensation of bloating. She has not experienced any fever during this episode. Past Medical History (PMH): colon resection in 2013, esophageal and colonic polyps, short-bowel syndrome, hypertension, and dyslipidemia Past Surgical History (PSH): sections, colon resection Family history (FH): Colon cancer in cousins EtOH: Denies alcohol use Smoking /Vaping: Denies smoking Recreational Drugs: Denies recreational drug use Residence: Lives with daughter Home Medications: No home medications Allergies: Codeine, vancomycin, dye PCP: Dr. Barr Specialist relevant to admission: GI, surgery Review of Systems Review of Systems General: patient denies fever, fatigue, weaknes, sweating, any recent changes in appetite and weight HEENT: No headaches, visiual changes, hearing loss, tinnitus, nasal congestion and discharge, and sore throat. Cardiovascular: Denies chest pain, palpitations, dyspnea on exertion, orthopnea, or claudication. Respiratory: No cough, and wheezing. Gastrointestinal: Complains of abdominal pain, diarrhea, vomiting Genitourinary: No dysuria, hematuria, discharge, frequency, urgency, nocturia, incontinence, and urinary retention. Endocrine: No heat or cold intolerance, polydipsia, polyuria, and polyphagia. Neurological: No dizziness, extremity weakness and numbness, tremors, gait disturbance, seizures, and memory impairment. Psychiatric: Denies depression, anxiety,or insomnia. Musculoskeletal: Denies neck pain, stiffness and swelling, back pain, muscle weakness, joint pain, stiffness, swelling, or limited range of motion. Skin: No rashes, itching, skin lesion, changes in hair, nail, skin texture and breast. Hematologic/Lymphatic: Denies easy bruising, bleeding tendencies, or lymph node enlargement. Allergies: Coded Allergies: Vancomycin (Verified Allergy, Intermediate, RASH AND ITCHING, 01/11/14) Codeine (Verified Allergy, Mild, 03/21/10) Uncoded Allergies: dye from CT SCAN & VQ scan (Allergy, Unknown, hives, 11/16/19) Medications Current Medications Medications Dose Ordered Sig/Michaela Route Start Time Stop Time Status Last Admin Dose Admin Pantoprazole Sodium 40 mg DAILY IV 02/09/25 10:00 Ceftriaxone Sodium 50 ml @ 100 mls/hr DAILY IV 02/09/25 10:00 Metronidazole 100 ml @ 100 mls/hr DAILY IV 02/09/25 10:00 UNV Exam Vital Signs Vital Signs Date Time Temp Pulse Resp B/P (MAP) Pulse Ox O2 Delivery O2 Flow Rate FiO2 02/08/25 18:42 98.1 78 16 136/70 (92) 97 98.1 02/08/25 18:42 Room Air Exam General Appearance: Alert, Oriented X3, Cooperative, No acute distress HEENT: Atraumatic, PERRLA, EOMI, Mucous membrane moist/pink Respiratory: Clear to auscultation, Normal air movement Cardiovascular: Regular rate, Normal S1, Normal S2, No murmurs, no chest wall tenderness Abdominal: Diffuse abdominal tenderness present Extremities: No clubbing, No cyanosis, No edema, Normal pulses, No tendern ess/swelling Skin: No rashes, No breakdown, No significant lesion Neuro: Normal gait, Normal speech, Strength at 5/5 X4 ext, Normal tone, Sensation intact, Cranial nerves 3-12 NL, Reflexes 2+ Psych/Mental Status: Mental status NL, Mood NL Labs/Xrays Labs Test 02/08/25 15:21 02/08/25 14:19 02/08/25 13:57 Range/Units Troponin I High Sensitivity < 3 L </=34 ng/L Beta HCG, Quantitative 0.5 L 1.5-4.2 mIU/mL White Blood Count 7.0 4.4-10.8 10^3/uL Red Blood Count 4.20 4.0-5.20 10^6/uL Hemoglobin 11.3 L 12.2-16.2 g/dL Hematocrit 34.6 L 36.0-46.0 % Mean Corpuscular Volume 82.5 80.0-100.0 fL Mean Corpuscular Hemoglobin 26.9 L 28.0-32.0 pg Mean Corpuscular Hemoglobin Concent 32.6 32.0-36.0 g/dL Red Cell Distribution Width 17.2 H 11.8-14.3 % Platelet Count 301 140-450 10^3/uL Mean Platelet Volume 8.1 6.9-10.8 fL Neutrophils (%) (Auto) 58.1 37.0-80.0 % Lymphocytes (%) (Auto) 35.0 10.0-50.0 % Monocytes (%) (Auto) 5.3 0.0-12.0 % Eosinophils (%) (Auto) 1.2 0.0-7.0 % Basophils (%) (Auto) 0.4 0.0-2.0 % Neutrophils # (Auto) 4.1 1.6-8.6 10 ^3/uL Lymphocytes # (Auto) 2.5 0.4-5.4 10 ^3/uL Monocytes # (Auto) 0.4 0-1.3 10 ^3/uL Eosinophils # (Auto) 0.1 0-0.8 10 ^3/uL Basophils # (Auto) 0 0-0.2 10 ^3/uL Nucleated Red Blood Cells 0.1 % Sodium Level 138 136-145 mmol/L Potassium Level 3.7 3.5-5.1 mmol/L Chloride Level 103 98-107 mmol/L Carbon Dioxide Level 25 20-31 mmol/L Anion Gap 10 5-15 Blood Urea Nitrogen 6 L 9-23 mg/dL Creatinine 0.65 0.550-1.02 mg/dL Glomerular Filtration Rate Calc 110 >90 mL/min BUN/Creatinine Ratio 9.2 L 10.0-20.0 Serum Glucose 98 74-106 mg/dL Lactic Acid Level 1.3 0.4-2.0 mmol/L Calcium Level 9.3 8.7-10.4 mg/dL Total Bilirubin 0.4 0.2-1.0 mg/dL Aspartate Amino Transferase (AST) 24 13-40 U/L Alanine Aminotransferase (ALT) 31 7-40 U/L Alkaline Phosphatase 87 46-116 U/L Total Protein 7.6 5.7-8.2 g/dL Albumin 4.3 3.2-4.8 g/dL Urine Color Light-yellow Yellow Urine Clarity Clear Clear Urine pH 5.0 5.0-9.0 Urine Specific [place] 1.009 1.001-1.035 Urine Protein Negative Negative Urine Ketones Negative Negative Urine Blood Negative Negative /uL Urine Nitrite 2+ H Negative Urine Bilirubin Negative Negative Urine Urobilinogen Normal Negative mg/dL Urine Leukocyte Esterase Negative Negative /uL Urine RBC 1 0 - 4 /hpf Urine Microscopic WBC 2 0-5 /HPF Urine Squamous Epithelial Cells Few <5 /hpf Urine Bacteria Few H None Seen /hpf Urine Glucose Normal Normal mg/dL SEPSIS Sepsis Screen Date sepsis recognized/suspect: Feb 08, 2025 Time Sepsis recognized/suspect: 1333 Recent Procedure: No On Antibiotic Therapy: No Respiratory Rate >20: No Heart Rate >90: No Temp<36 C (96.8 F) or >38.3 C: No SBP <90 or MAP <65 mmHG: No New Acute Mental Status Change: No Is the patient on CPAP, BIPAP,: No Physician Orders Admit (02/08/25 22:09) Allergies (02/08/25 22:09) Code Status (02/08/25 22:09) Complete Blood Count (02/09/25 04:00) Comprehensive Metabolic Panel (02/09/25 04:00) Npo (Nothing By Mouth) Diet (02/09/25 Breakfast) Condition: Fair (02/08/25 22:09) Kub Abdomen Single View (02/09/25 11:30) Clostridium Difficile Toxin (02/08/25 22:15) * Surgical Consult (02/08/25 ) Pantoprazole (Protonix) (02/09/25 10:00) Ceftriaxone 1gm/50ml (Rocephin) (02/09/25 10:00) Metronidazole 500mg/100ml (Flagyl 500mg/ (02/09/25 10:00) Vital Signs Date Time Temp Pulse Resp B/P (MAP) Pulse Ox O2 Delivery O2 Flow Rate FiO2 02/08/25 18:42 98.1 78 16 136/70 (92) 97 98.1 02/08/25 18:42 78 16 97 Room Air Laboratory Tests Test 02/08/25 14:19 Lactic Acid Level 1.3 mmol/L (0.4-2.0) White Blood Count 7.0 10^3/uL (4.4-10.8) Medications Medications Dose Ordered Sig/Michaela Route Start Time Stop Time Status Last Admin Dose Admin Sodium Chloride 1,700 ml @ 1,700 mls/hr ONCE ONCE IV 02/08/25 14:00 02/08/25 14:59 DC 02/08/25 18:39 1,700 MLS/HR Assessment/Plan Assessment/Plan Assessment and plan # Proctitis, history of partial colectomy # Possible large bowel obstruction - Surgery consult - GI consult - Ceftriaxone, Flagyl - Follow Clostridium difficile results - IV Protonix - Pain medications # Esophageal and colonic polyps - Endoscopic and colonoscopic surveillance at regular intervals, follow up with PCP # History of short-bowel syndrome - Low-fat diet - Follow up with PCP as outpatient after discharge # Essential Hypertension - Monitor blood pressure in-hospital. Patient not on home medications. Assess t he need for starting antihypertensives. # Dyslipidemia - Follow lipid levels PUD prophylaxis: protonix 40mg DVT prophylaxis: brisk movement. Barriers to discharge: Medical diagnosis and management in progress. Patient lives with family. Independent for ADL. PCP: Dr. Barr Specialist Relevent To Admission: GI, surgery Case discussed with Dr. Gilmore. Code Status: Full Code. Complex patient care discussion needed. Spend total 33 minutes for bedside assessment, case discussion and management. Plan discussed with: Patient My Orders Orders - OSVALDO ALMONTE RESIDENT Procedure Category Date Status Time Admit ADMIT 02/08/25 Transmitted 22:09 Allergies MAUIRCE 02/08/25 In Process 22:09 Code Status CODE 02/08/25 Transmitted 22:09 Complete Blood Count LAB 02/09/25 Verified 04:00 Comprehensive LAB 02/09/25 Verified Metabolic Panel 04:00 Npo (Nothing By DIET 02/09/25 Transmitted Mouth) Diet Breakfast Condition: Fair MAURICE 02/08/25 In Process 22:09 Kub Abdomen Single XY 02/09/25 Logged View 11:30 Clostridium Difficile DESMOND 02/08/25 Logged Toxin 22:15 * Surgical Consult CONS 02/08/25 Transmitted Pantoprazole PHA 02/09/25 In Process (Protonix) 10:00 Ceftriaxone 1gm/50ml PHA 02/09/25 In Process (Rocephin) 10:00 Metronidazole PHA 02/09/25 Pending 500mg/100ml (Flagyl 10:00 Date of Service: Feb 08, 2025 Billing Provider: MASTER GILMORE MD Common Visit Codes: [id number] INP/OBS CARE (HIGH) Secondary Visit Codes: [id number] CARE PLAN 30 MINUTES OSVALDO ALMONTE RESIDENT Feb 08, 2025 23:38
[2025-02-09] MEDS: MORPHINE SULFATE 4 MG/ML SYR/VIAL IV ONE (00:49)
[2025-02-09] MEDS: ONDANSETRON HCL 4 MG/2 ML VIAL IV ONE (00:50)
[2025-02-09] MEDS: PANTOPRAZOLE 40 MG/10 ML VIAL INJ IV ONE (01:02)
[2025-02-09] MEDS: KETOROLAC TROMETH 30 MG/ML 1ML VIAL IV ONE (01:03)
[2025-02-09] MEDS: PIPERACILLIN-TAZO 4.5GM 100 ML IV ONE (01:09)
[2025-02-09] MEDS ORDERED: DEXTROSE (50%) 50ML SYRG IV PRN (04:00)
[2025-02-09] MEDS: SODIUM CHLORIDE 0.9% 1,000 ML IV SCH (05:00)
[2025-02-09] MEDS: POTASSIUM CHL 20MEQ/100ML 100 ML IV ONE (05:15)
[2025-02-09] MEDS ORDERED: ACCU-CHEK COMFORT CURVE STRIP VI SCH (06:00)
[2025-02-09] MEDS ORDERED: InsuLIN REG 1unit/0.01ml Soln (100units/ml) SC SCH (06:00)
[2025-02-09 06:22] LABS: Hematocrit 34.2 % (36.0-46.0); Hemoglobin 11.3 g/dL (12.2-16.2); Mean Corpuscular Hemoglobin 27.4 pg (28.0-32.0); Mean Corpuscular Volume 82.9 fL (80.0-100.0); Nucleated Red Blood Cells % 0.1 %
[2025-02-09 06:38] LABS: Alanine Aminotransferase 31 U/L (7-40); Albumin 4.4 g/dL (3.2-4.8); Alkaline Phosphatase 83 U/L (46-116); Anion Gap 9 (5-15); BUN/Creatinine Ratio 8.7 (10.0-20.0); Bilirubin, Total 0.7 mg/dL (0.2-1.0); Calcium 8.8 mg/dL (8.7-10.4); Carbon Dioxide 23 mmol/L (20-31); Chloride 105 mmol/L (98-107); Glucose 91 mg/dL (74-106); Sodium 137 mmol/L (136-145); Total Protein 7.6 g/dL (5.7-8.2)
--- NOTE | 2025-02-09 06:38 | DVH ---
Exam: XY KUB ABDOMEN SINGLE VIEW Indication: abd pain Comparison: CT CT AB PEL WO CON-NO ORAL OR IV on DOS: 02/08/25 Technique: 1 radiographic views of the abdomen. Findings: Nonspecific bowel-gas pattern. There is no definite evidence for pneumoperitoneum. No abnormal calcifications noted. Impression: Nonspecific bowel-gas pattern.
[2025-02-09 06:39] LABS: Blood Urea Nitrogen 6 mg/dL (9-23); Potassium 3.4 mmol/L (3.5-5.1)
[2025-02-09] MEDS: ENOXAPARIN SOD 40 MG/0.4 ML SYRINGE SC SCH (10:00)
[2025-02-09] MEDS: PANTOPRAZOLE 40 MG/10 ML VIAL INJ IV SCH (11:10)
[2025-02-09] MEDS: ERGOCALCIFEROL 50,000 UNIT(1.25MG) CAP PO SCH (11:15)
--- NOTE | 2025-02-09 13:36 | DVHPNRES ---
Progress Note Date Seen: Feb 09, 2025 Resident Creating Document: LAUREN RODRIGUEZ RESIDENT Medical Necessity Reason Pt with a Central, PICC or Fol: No Subjective Review of Systems Patient is 44 years old female with past medical history of recurrent colonic polyp and esophageal polyp had left colectomy in 2013 in [facility], short bowel syndrome, history of recurrent TIA x2 came with a complaint of left lower abdomen that started 2 days before, sudden onset, crampy, intermittent, 10/10, associated nausea and vomiting 6 times, no blood. Patient also endorsed having diarrhea for 6 times, no blood. Patient also endorsed left periorbital headache, intermittent, with the associated left eye visual disturbance time to time. She lab workup revealed hemoglobin 11.3. CT abdomen and pelvis revealed- Rectal wall thickening. Correlate for proctitis. Moderate to large amount of liquid stool and gas within the colon. Correlate for diarrheal state. Postsurgical changes of right hemicolectomy with distention of the large bowel of the hepatic flexure up to 7.4 cm. Left ovarian cyst. Or acute intracranial abnormality. X-ray KUB reveals nonspecific bowel gas pattern. PMH-recurrent colonic polyp and esophageal polyp had left colectomy in 2023 in [facility], short bowel syndrome, history of recurrent TIA x2 PSH- left hemicolectomy Allergy-codeine, vancomycin, diaphragm CT scan and V/Q scan. Personal History/ Social History- denies smoking/alcoholism/drug abuse, RO H Cardiovascular- deny acute chest pain or shortness of breath or cough or palpitation Respiratory denies cough or short of breath or wheezing Musculoskeletal-denies acute joint swelling or tenderness or redness Neurological- denies acute dysarthria, dysphagia, change in vision Psychiatry- denies depression or SI or HI Skin- denies acute rash or purpura Patient is seen today, Labs and chart reviewed. Patient reported pain 8/10 today, passing gases. Patient's ceftriaxone and metronidazole for proctitis. On IV normal saline. Patient was seen by Gastroenterology.Patient had an endoscopy at the surgery center in May of this year. She had a 1 cm sliding-type hiatal hernia mild gastritis and benign gastric fundic polyps. Patient stated her last colonoscopy was done by me in February of last year, no polyps. Objective vital signs Vital Sign Date Time Temp Pulse Resp B/P (MAP) Pulse Ox O2 Delivery O2 Flow Rate FiO2 9/16/25 11:41 98.2 72 17 122/55 (77) 99 98.2 02/08/25 18:42 Room Air Total Intake and Output 02/08/25 02/08/25 02/09/25 15:00 23:00 07:00 Intake Total 150 ml Balance 150 ml medications Current Medications Medications Dose Ordered Sig/Michaela Route Start Time Stop Time Status Last Admin Dose Admin Pantoprazole Sodium 40 mg DAILY IV 02/09/25 10:00 02/09/25 11:10 40 MG Ceftriaxone Sodium 50 ml @ 100 mls/hr DAILY IV 02/09/25 10:00 02/09/25 11:09 100 MLS/HR Metronidazole 100 ml @ 100 mls/hr Q8H IV 02/09/25 10:00 02/09/25 11:10 100 MLS/HR Dextrose 50 ml UD PRN IV 02/09/25 04:00 Sodium Chloride 1,000 ml @ 75 mls/hr [id number] IV 02/09/25 05:00 Enoxaparin Sodium 40 mg DAILY SC 02/09/25 08:00 02/09/25 11:10 40 MG Ergocalciferol 50,000 unit Q7D PO 02/09/25 11:15 02/09/25 11:15 50,000 UNIT Examination General examination- awake, alert, HEENT- PEERLA, no acute nasal discharge Cardiovascular- S1-S2 audible, rate and rhythm regular, no murmur Respiratory- CTAB, no wheeze or rhonchi Gastrointestinal-abdominal tenderness+, bowel sound+. Nondistended Musculoskeletal-no acute joint swelling or tenderness or redness Lower extremity- no leg edema Neurological- cranial nerves intact, no acute dysarthria or dysphagia Psychiatry- denies depression or SI or HI Skin- no acute rash or purpura laboratory and microbiology Laboratory Tests 02/09/25 05:54 Test 02/09/25 05:54 Range/Units Serum Glucose 91 74-106 mg/dL Problem List/Assessment/Plan Problem List/Assessment/Plan Assessment and plan # acute proctitis # acute gastroenteritis likely infectious # history of recurrent colonic polyp # intractable abdominal pain with nausea and vomiting likely due to above -CT abdomen and pelvis revealed suspected proctitis -rule out acute intestinal obstruction -continue ceftriaxone and metronidazole as prescribed -continue pantoprazole as prescribed -GI consultation reviewed and appreciated-Patient had an endoscopy at the surgery center in May of this year. She had a 1 cm sliding-type hiatal hernia mild gastritis and benign gastric fundic polyps. Patient stated her last colonoscopy was done by me in February of last year, no polyps. -surgery recommendation reviewed and appreciated # history of TIA -continue current conservative management # short bowel syndrome -continue current conservative management # ovarian cyst -CT abdomen and pelvis finding -follow up with the ocean export coordinator and sampler radioactive waste for further evaluation and care Goals of care, Code status ; discussed with >15 minutes PUD prophylaxis: Pantoprazole DVT prophylaxis: Lovenox Plan discussed with Dr. Gresham , nursing staff, Total time spent on patient evaluation, chart review, assessment and plan, discussion discussion >35 minutes Plan discussed with: Patient, Other My Orders My Orders Orders - LAUREN RODRIGUEZ Procedure Category Date Status Time Enoxaparin Sodium PHA 02/09/25 In Process (Lovenox) 08:00 Ergocalciferol PHA 02/09/25 In Process (Vitamin D 50,000 11:15 LAUREN RODRIGUEZ RESIDENT Feb 09, 2025 13:36
--- NOTE | 2025-02-09 15:11 | DVHINCON2 ---
Date of service: Feb 09, [address] Elizalde Reason for Consultation Abdominal pain History of Present Illness History of Present Illness (HPI): Na Chávez is a 44-year-old female with a significant past medical history including colon resection in 2013, esophageal and colonic polyps, hypertension, and dyslipidemia presented with complaints of pain localized to the left side of the head and abdominal pain, both of which have been ongoing for the past two days. She describes the head pain as dull, constant, and severe, rating it 10 out of 10 in intensity, with no identifiable aggravating or relieving factors. The abdominal pain is accompanied by episodes of vomiting and watery diarrhea. She also reports a sensation of bloating. She has not experienced any fever during this episode. She denies any GI bleeding . Last bowel movement was yesterday morning Patient had an endoscopy at the surgery center in May of this year. She had a 1 cm sliding-type hiatal hernia mild gastritis and benign gastric fundic polyps. Patient stated her last colonoscopy was done by me in February of last year at which time I had found no polyps. Past Medical History Past Medical History (PMH): colon resection in 2013, benign esophageal and colonic polyps, short-bowel syndrome, hypertension, and dyslipidemia Past Surgical History Past Surgical History (PSH): sections, colon resection Family History: Alzheimer's disease G8 MOTHER Cardiovascular disease G8 FATHER Diabetes mellitus G8 MOTHER FH: Parkinson's disease G8 FATHER FH: benign prostatic hypertrophy G8 FATHER FH: bipolar disorder G8 SISTER FH: congestive heart failure G8 FATHER FH: dementia G8 FATHER FH: schizophrenia G8 FATHER Family history: Diabetes mellitus grandma Family history: Hypertension Family History Family history (FH): Colon cancer in cousins Allergies: Coded Allergies: Vancomycin (Verified Allergy, Intermediate, RASH AND ITCHING, 01/11/14) Codeine (Verified Allergy, Mild, 03/21/10) Uncoded Allergies: dye from CT SCAN & VQ scan (Allergy, Unknown, hives, 11/16/19) Home Meds Reported Medications Ibuprofen Micronized (Ibuprofen) 800 Mg Tab, 800 MG PO Q6HPRN PRN for MILD PAIN, TAB 04/09/16 Current Medications Current Medications Medications (Trade) Dose Ordered Sig/Michaela Route PRN Reason Start Time Stop Time Status Last Admin Pantoprazole Sodium (Protonix) 40 mg DAILY IV 02/09/25 10:00 02/09/25 11:10 Ceftriaxone Sodium 50 ml @ 100 mls/hr DAILY IV 02/09/25 10:00 02/09/25 11:09 Metronidazole 100 ml @ 100 mls/hr Q8H IV 02/09/25 10:00 02/09/25 11:10 Diagnostic Test (Pha) (Accu-Chek Comfort Curve T) 1 strip Q6HR 02/09/25 06:00 02/09/25 11:04 DC Insulin Human Regular (InsuLIN R) Q6HR SC 02/09/25 06:00 02/09/25 09:00 DC Dextrose 50 ml UD PRN IV Blood Sugar LESS THAN 60 02/09/25 04:00 Sodium Chloride 1,000 ml @ 75 mls/hr [id number] IV 02/09/25 05:00 Enoxaparin Sodium (Lovenox) 40 mg DAILY SC 02/09/25 08:00 02/09/25 11:10 Ergocalciferol (Vitamin D 50,000 Unit) 50,000 unit Q7D PO 02/09/25 11:15 02/09/25 11:15 Vital Signs Vital Signs Date Time Temp Pulse Resp B/P (MAP) Pulse Ox O2 Delivery O2 Flow Rate FiO2 02/09/25 11:41 98.2 72 17 122/55 (77) 99 98.2 02/08/25 18:42 Room Air Physical Exam HEENT- PEERLA, extraocular muscles are intact, no discharge Cardiovascular- S1-S2 audible, rate and rhythm regular, no murmur Respiratory- CTAB, no wheeze or rhonchi Gastrointestinal-soft with mild abdominal tenderness+, bowel sound+. Nondistended Musculoskeletal-no acute joint swelling or tenderness or redness Lower extremity- no leg edema Neurological- cranial nerves intact, no acute dysarthria or dysphagia Psychiatry- denies depression or SI or HI Skin- no acute rash or purpura Labs/Diagnostic Data Labs Test 02/09/25 09:57 02/09/25 05:54 02/08/25 15:21 02/08/25 14:19 Range/Units Erythrocyte Sedimentation Rate 19 0-20 mm/hr White Blood Count 7.1 4.4-10.8 10^3/uL Red Blood Count 4.13 4.0-5.20 10^6/uL Hemoglobin 11.3 L 12.2-16.2 g/dL Hematocrit 34.2 L 36.0-46.0 % Mean Corpuscular Volume 82.9 80.0-100.0 fL Mean Corpuscular Hemoglobin 27.4 L 28.0-32.0 pg Mean Corpuscular Hemoglobin Concent 33.1 32.0-36.0 g/dL Red Cell Distribution Width 17.4 H 11.8-14.3 % Platelet Count 295 140-450 10^3/uL Mean Platelet Volume 7.9 6.9-10.8 fL Neutrophils (%) (Auto) 57.1 37.0-80.0 % Lymphocytes (%) (Auto) 33.9 10.0-50.0 % Monocytes (%) (Auto) 7.1 0.0-12.0 % Eosinophils (%) (Auto) 1.3 0.0-7.0 % Basophils (%) (Auto) 0.6 0.0-2.0 % Neutrophils # (Auto) 4.1 1.6-8.6 10 ^3/uL Lymphocytes # (Auto) 2.4 0.4-5.4 10 ^3/uL Monocytes # (Auto) 0.5 0-1.3 10 ^3/uL Eosinophils # (Auto) 0.1 0-0.8 10 ^3/uL Basophils # (Auto) 0 0-0.2 10 ^3/uL Nucleated Red Blood Cells 0.1 % Sodium Level 137 136-145 mmol/L Potassium Level 3.4 L 3.5-5.1 mmol/L Chloride Level 105 98-107 mmol/L Carbon Dioxide Level 23 20-31 mmol/L Anion Gap 9 5-15 Blood Urea Nitrogen 6 L 9-23 mg/dL Creatinine 0.69 0.550-1.02 mg/dL Glomerular Filtration Rate Calc 108 >90 mL/min BUN/Creatinine Ratio 8.7 L 10.0-20.0 Serum Glucose 91 74-106 mg/dL Hemoglobin A1c 5.5 <5.7 % A1C Calcium Level 8.8 8.7-10.4 mg/dL Magnesium Level 1.9 1.6-2.6 mg/dL Total Bilirubin 0.7 0.2-1.0 mg/dL Aspartate Amino Transferase (AST) 23 13-40 U/L Alanine Aminotransferase (ALT) 31 7-40 U/L Alkaline Phosphatase 83 46-116 U/L C-Reactive Protein High Sensitivity 0.14 <1.0 mg/dL Total Protein 7.6 5.7-8.2 g/dL Albumin 4.4 3.2-4.8 g/dL Vitamin B12 Level 211 211-911 pg/mL Vitamin D 25-Hydroxy 17.2 L 30.0-100 ng/mL Folic Acid 19.55 >5.38 ng/mL Thyroid Stimulating Hormone (TSH) 4.79 H 0.55-4.78 uIU/mL Troponin I High Sensitivity < 3 L </=34 ng/L Beta HCG, Quantitative 0.5 L 1.5-4.2 mIU/mL Lactic Acid Level 1.3 0.4-2.0 mmol/L Test 02/08/25 13:57 Range/Units Urine Color Light-yellow Yellow Urine Clarity Clear Clear Urine pH 5.0 5.0-9.0 Urine Specific [place] 1.009 1.001-1.035 Urine Protein Negative Negative Urine Ketones Negative Negative Urine Blood Negative Negative /uL Urine Nitrite 2+ H Negative Urine Bilirubin Negative Negative Urine Urobilinogen Normal Negative mg/dL Urine Leukocyte Esterase Negative Negative /uL Urine RBC 1 0 - 4 /hpf Urine Microscopic WBC 2 0-5 /HPF Urine Squamous Epithelial Cells Few <5 /hpf Urine Bacteria Few H None Seen /hpf Urine Glucose Normal Normal mg/dL Microbiology Date/Time Source Procedure Growth Status 02/08/25 14:19 Blood Blood Culture - Preliminary NO GROWTH AFTER 24 HOURS OF INCUBATION. Resulted Chest abdominal x-ray Impression: Nonspecific bowel-gas pattern. CT scan abdomen pelvis IMPRESSION: Rectal wall thickening. Correlate for proctitis. Moderate to large amount of liquid stool and gas within the colon. Correlate for diarrheal state. Postsurgical changes of right hemicolectomy with distention of the large bowel of the hepatic flexure up to 7.4 cm. Left ovarian cyst. Problems(with codes): (1) Proctitis (2) Enteritis (3) Abdominal pain of unknown etiology (4) Dehydration (5) Headache Plan/Recommendation Assessment and plan Possible acute gastroenteritis with ileus ; viral syndrome with headache Patient has been started on Protonix and IV antibiotics History of right hemicolectomy for a benign colonic mass Recent negative colonoscopy about a year ago in January 2024 with intact ileocolonic anastomosis There was no known history of a short-bowel syndrome as she did not have any significant small-bowel resection Start with clear liquid diet advance as tolerated Patient has been instructed to follow up with me as an outpatient in 2-4 weeks to discuss further management and possible outpatient elective colonoscopy Plan discussed with: Patient, Other (Dr Elizalde) SAMMIE WEAVER MD Feb 09, 2025 15:11
--- NOTE | 2025-02-09 15:48 | DVHINCON2 ---
Consultation - Surgical Date Seen: Feb 09, 2025 Referring Physician Reason for Consultation Possible SBO History of Present Illness History of Present Illness Mrs. Chávez is a 44-year-old female who presented to the ED due to abdominal bloating, pain, nausea, vomiting, and diarrhea. Patient's symptoms started approximately 4 days ago, and the diarrhea started 2 days ago. Given that the symptoms persisted she decided to come to the ED. Currently not having anymore vomiting or diarrhea. Patient states she does not recall being recently sick or being around sick contacts, or having eaten anything that could a cluster this GI symptoms. She states that she usually gets bloated when she has tomatoes and she ate then 2 days ago. Last bowel movement was yesterday. Has not eating anything for the last several days. She has a history of a right colectomy due to colon cancer back in 2013, patient did not require any further treatment for her condition. Patient is up-to-date with her follow-ups, her last colonoscopy was a year ago without any abnormalities. She also had a EGD done at the same time and some esophageal polyps were removed. Denies recent weight loss, loss of appetite, blood in stools. Past Medical/Surgical History Past Medical/Surgical History PMH colon cancer, esophageal polyps . PSH upper and lower endoscopies both of them last year, right hemicolectomy (2013), , tubal ligation Family and Social History Family and Social History Family history of breast cancer and brain cancer ETOH/T Ob/drugs denies Allergies and medications Allergies: Coded Allergies: Vancomycin (Verified Allergy, Intermediate, RASH AND ITCHING, 01/11/14) Codeine (Verified Allergy, Mild, 03/21/10) Uncoded Allergies: dye from CT SCAN & VQ scan (Allergy, Unknown, hives, 11/16/19) Home Meds Reported Medications Ibuprofen Micronized (Ibuprofen) 800 Mg Tab, 800 MG PO Q6HPRN PRN for MILD PAIN, TAB 04/09/16 Review of systems Review of Systems: Deferred (see HPI) Examination Vital signs Vital Signs Date Time Temp Pulse Resp B/P (MAP) Pulse Ox O2 Delivery O2 Flow Rate FiO2 02/09/25 11:41 98.2 72 17 122/55 (77) 99 98.2 02/08/25 18:42 Room Air Medications Current Medications Medications (Trade) Dose Ordered Sig/Michaela Route PRN Reason Start Time Stop Time Status Last Admin Pantoprazole Sodium (Protonix) 40 mg DAILY IV 02/09/25 10:00 02/09/25 11:10 Ceftriaxone Sodium 50 ml @ 100 mls/hr DAILY IV 02/09/25 10:00 02/09/25 11:09 Metronidazole 100 ml @ 100 mls/hr Q8H IV 02/09/25 10:00 02/09/25 11:10 Diagnostic Test (Pha) (Accu-Chek Comfort Curve T) 1 strip Q6HR 02/09/25 06:00 02/09/25 11:04 DC Insulin Human Regular (InsuLIN R) Q6HR SC 02/09/25 06:00 02/09/25 09:00 DC Dextrose 50 ml UD PRN IV Blood Sugar LESS THAN 60 02/09/25 04:00 Sodium Chloride 1,000 ml @ 75 mls/hr [id number] IV 02/09/25 05:00 Enoxaparin Sodium (Lovenox) 40 mg DAILY SC 02/09/25 08:00 02/09/25 11:10 Ergocalciferol (Vitamin D 50,000 Unit) 50,000 unit Q7D PO 02/09/25 11:15 02/09/25 11:15 Laboratory Labs Test 02/09/25 09:57 02/09/25 05:54 02/08/25 15:21 02/08/25 14:19 Range/Units Erythrocyte Sedimentation Rate 19 0-20 mm/hr White Blood Count 7.1 4.4-10.8 10^3/uL Red Blood Count 4.13 4.0-5.20 10^6/uL Hemoglobin 11.3 L 12.2-16.2 g/dL Hematocrit 34.2 L 36.0-46.0 % Mean Corpuscular Volume 82.9 80.0-100.0 fL Mean Corpuscular Hemoglobin 27.4 L 28.0-32.0 pg Mean Corpuscular Hemoglobin Concent 33.1 32.0-36.0 g/dL Red Cell Distribution Width 17.4 H 11.8-14.3 % Platelet Count 295 140-450 10^3/uL Mean Platelet Volume 7.9 6.9-10.8 fL Neutrophils (%) (Auto) 57.1 37.0-80.0 % Lymphocytes (%) (Auto) 33.9 10.0-50.0 % Monocytes (%) (Auto) 7.1 0.0-12.0 % Eosinophils (%) (Auto) 1.3 0.0-7.0 % Basophils (%) (Auto) 0.6 0.0-2.0 % Neutrophils # (Auto) 4.1 1.6-8.6 10 ^3/uL Lymphocytes # (Auto) 2.4 0.4-5.4 10 ^3/uL Monocytes # (Auto) 0.5 0-1.3 10 ^3/uL Eosinophils # (Auto) 0.1 0-0.8 10 ^3/uL Basophils # (Auto) 0 0-0.2 10 ^3/uL Nucleated Red Blood Cells 0.1 % Sodium Level 137 136-145 mmol/L Potassium Level 3.4 L 3.5-5.1 mmol/L Chloride Level 105 98-107 mmol/L Carbon Dioxide Level 23 20-31 mmol/L Anion Gap 9 5-15 Blood Urea Nitrogen 6 L 9-23 mg/dL Creatinine 0.69 0.550-1.02 mg/dL Glomerular Filtration Rate Calc 108 >90 mL/min BUN/Creatinine Ratio 8.7 L 10.0-20.0 Serum Glucose 91 74-106 mg/dL Hemoglobin A1c 5.5 <5.7 % A1C Calcium Level 8.8 8.7-10.4 mg/dL Magnesium Level 1.9 1.6-2.6 mg/dL Total Bilirubin 0.7 0.2-1.0 mg/dL Aspartate Amino Transferase (AST) 23 13-40 U/L Alanine Aminotransferase (ALT) 31 7-40 U/L Alkaline Phosphatase 83 46-116 U/L C-Reactive Protein High Sensitivity 0.14 <1.0 mg/dL Total Protein 7.6 5.7-8.2 g/dL Albumin 4.4 3.2-4.8 g/dL Vitamin B12 Level 211 211-911 pg/mL Vitamin D 25-Hydroxy 17.2 L 30.0-100 ng/mL Folic Acid 19.55 >5.38 ng/mL Thyroid Stimulating Hormone (TSH) 4.79 H 0.55-4.78 uIU/mL Troponin I High Sensitivity < 3 L </=34 ng/L Beta HCG, Quantitative 0.5 L 1.5-4.2 mIU/mL Lactic Acid Level 1.3 0.4-2.0 mmol/L Test 02/08/25 13:57 Range/Units Urine Color Light-yellow Yellow Urine Clarity Clear Clear Urine pH 5.0 5.0-9.0 Urine Specific [place] 1.009 1.001-1.035 Urine Protein Negative Negative Urine Ketones Negative Negative Urine Blood Negative Negative /uL Urine Nitrite 2+ H Negative Urine Bilirubin Negative Negative Urine Urobilinogen Normal Negative mg/dL Urine Leukocyte Esterase Negative Negative /uL Urine RBC 1 0 - 4 /hpf Urine Microscopic WBC 2 0-5 /HPF Urine Squamous Epithelial Cells Few <5 /hpf Urine Bacteria Few H None Seen /hpf Urine Glucose Normal Normal mg/dL Microbiology Date/Time Source Procedure Growth Status 02/08/25 14:19 Blood Blood Culture - Preliminary NO GROWTH AFTER 24 HOURS OF INCUBATION. Resulted Examination: GENERAL:Normal, HEENT:Normal (No icterus), ABDOMEN:Normal (Nondistended, midline scar well healed, soft, depressible, nontender) Problem List/Assessment/Plan Problems: (1) Abdominal pain of unknown etiology Assessment and Plan Mrs. Chávez is a 44-year-old female who presented with GI since symptoms as stated in the HPI. Since she has been in the ED she has been afebrile with vi zoila signs stable. Labs have been unremarkable. CT scan does not show any small bowel dilatation, but you can see diarrheal state within the bowel lumen. Per her history and symptoms, coupled with a CT scan, patient does not have a small-bowel obstruction. Patient does have some sort of GI illness that caused her to have some diarrhea and vomiting. No need for any surgical intervention at this time. -I will sign off, please call with any questions or concerns Plan discussed with Plan discussed with: Patient Visit Coding Surgery Date of Service if different f: Feb 09, 2025 Billing Provider: CON DENNISON MD Surgery Visit Codes: 04424 - INP CONSULT <110 MIN CON DENNISON MD Feb 09, 2025 15:48
[2025-02-09] MEDS: ACETAMINOPHEN IV 100 ML IV ONE (16:55)
[2025-02-09 22:33] VITALS: BP_SYST 126; BP_SYST 96; BP_DIAS 58; BP_DIAS 80; PULSE 69; PULSE 77; RESP 18; TEMP 98.1; TEMP 98.3; O2SAT 94; O2SAT 97
[2025-02-10 01:00] VITALS: BP 96/58; PULSE 77; RESP 18; TEMP 98.2; O2SAT 97
[2025-02-10] MEDS: DOCUSATE SOD 100 MG CAP PO SCH (02:02)
[2025-02-10 05:00] VITALS: BP 93/56; PULSE 70; RESP 18; TEMP 98.4; O2SAT 95
[2025-02-10 06:07] LABS: Hematocrit 31.3 % (36.0-46.0); Hemoglobin 10.3 g/dL (12.2-16.2); Mean Corpuscular Hemoglobin 27.2 pg (28.0-32.0); Mean Corpuscular Volume 82.4 fL (80.0-100.0); Nucleated Red Blood Cells % 0.0 %
[2025-02-10 06:41] LABS: Anion Gap 11 (5-15); Calcium 8.9 mg/dL (8.7-10.4); Carbon Dioxide 23 mmol/L (20-31); Chloride 106 mmol/L (98-107); Sodium 140 mmol/L (136-145)
--- NOTE | 2025-02-10 06:44 | DVHDSRES ---
Discharge Summary Date of Admission Resident Creating Document: LAUREN RODRIGUEZ Feb 08, 2025 at 22:09 Date of Discharge: Feb 10, 2025 Admitting Diagnosis Acute gastroenteritis Acute proctitis Labs/Diagnostic Data: Laboratory Results Test 02/10/25 05:47 02/09/25 09:57 02/09/25 05:54 02/08/25 15:21 White Blood Count 6.0 10^3/uL (4.4-10.8) Red Blood Count 3.80 10^6/uL (4.0-5.20) Hemoglobin 10.3 g/dL (12.2-16.2) Hematocrit 31.3 % (36.0-46.0) Mean Corpuscular Volume 82.4 fL (80.0-100.0) Mean Corpuscular Hemoglobin 27.2 pg (28.0-32.0) Mean Corpuscular Hemoglobin Concent 33.0 g/dL (32.0-36.0) Red Cell Distribution Width 17.1 % (11.8-14.3) Platelet Count 249 10^3/uL (140-450) Mean Platelet Volume 7.7 fL (6.9-10.8) Neutrophils (%) (Auto) 63.7 % (37.0-80.0) Lymphocytes (%) (Auto) 28.4 % (10.0-50.0) Monocytes (%) (Auto) 6.2 % (0.0-12.0) Eosinophils (%) (Auto) 1.3 % (0.0-7.0) Basophils (%) (Auto) 0.4 % (0.0-2.0) Neutrophils # (Auto) 3.8 10 ^3/uL (1.6-8.6) Lymphocytes # (Auto) 1.7 10 ^3/uL (0.4-5.4) Monocytes # (Auto) 0.4 10 ^3/uL (0-1.3) Eosinophils # (Auto) 0.1 10 ^3/uL (0-0.8) Basophils # (Auto) 0 10 ^3/uL (0-0.2) Nucleated Red Blood Cells 0.0 % Erythrocyte Sedimentation Rate 19 mm/hr (0-20) Hemoglobin A1c 5.5 % A1C (<5.7) Total Bilirubin 0.7 mg/dL (0.2-1.0) Aspartate Amino Transferase (AST) 23 U/L (13-40) Alanine Aminotransferase (ALT) 31 U/L (7-40) Alkaline Phosphatase 83 U/L (46-116) C-Reactive Protein High Sensitivity 0.14 mg/dL (<1.0) Total Protein 7.6 g/dL (5.7-8.2) Albumin 4.4 g/dL (3.2-4.8) Vitamin B12 Level 211 pg/mL (211-911) Vitamin D 25-Hydroxy 17.2 ng/mL (30.0-100) Folic Acid 19.55 ng/mL (>5.38) Thyroid Stimulating Hormone (TSH) 4.79 uIU/mL (0.55-4.78) Troponin I High Sensitivity < 3 ng/L (</=34) Beta HCG, Quantitative 0.5 mIU/mL (1.5-4.2) Test 02/08/25 14:19 02/08/25 13:57 Lactic Acid Level 1.3 mmol/L (0.4-2.0) Urine Color Light-yellow (Yellow) Urine Clarity Clear (Clear) Urine pH 5.0 (5.0-9.0) Urine Specific [place] 1.009 (1.001-1.035) Urine Protein Negative (Negative) Urine Ketones Negative (Negative) Urine Blood Negative /uL (Negative) Urine Nitrite 2+ (Negative) Urine Bilirubin Negative (Negative) Urine Urobilinogen Normal mg/dL (Negative) Urine Leukocyte Esterase Negative /uL (Negative) Urine RBC 1 /hpf (0 - 4) Urine Microscopic WBC 2 /HPF (0-5) Urine Squamous Epithelial Cells Few /hpf (<5) Urine Bacteria Few /hpf (None Seen) Urine Glucose Normal mg/dL (Normal) Other Laboratory Tests 02/10/25 05:47 Brief Hx & Hospital Course: Patient is 44 years old female with past medical history of recurrent colonic polyp and esophageal polyp had left colectomy in 2013 in [facility], short bowel syndrome, history of recurrent TIA x2 came with a complaint of left lower abdomen that started 2 days before, sudden onset, crampy, intermittent, 10/10, associated nausea and vomiting 6 times, no blood. Patient also endorsed having diarrhea for 6 times, no blood. Patient also endorsed left periorbital headache, intermittent, with the associated left eye visual disturbance time to time. She lab workup revealed hemoglobin 11.3. CT abdomen and pelvis revealed- Rectal wall thickening. Correlate for proctitis. Moderate to large amount of liquid stool and gas within the colon. Correlate for diarrheal state. Postsurgical changes of right hemicolectomy with distention of the large bowel of the hepatic flexure up to 7.4 cm. Left ovarian cyst. Or acute intracranial abnormality. X-ray KUB reveals nonspecific bowel gas pattern. Patient was treated conservatively with ceftriaxone and metronidazole IV normal saline. Patient is seen by surgery, cleared for acute intestinal obstruction.. Patient was seen by Gastroenterology.Patient had an endoscopy at the surgery center in May of this year. She had a 1 cm sliding-type hiatal hernia mild gastritis and benign gastric fundic polyps. Patient stated her last colonoscopy was done by in in February of last year, no polyps. Patient's symptoms of the improved clinically. Patient is passing gases. Patient is being discharged home with oral antibiotic Augmentin 500 mg p.o. b.i.d. for 5 days. Patient was advised to follow up with the primary care physician in 1-2 weeks and also to follow up with the sales enablement consultant in 2-3 weeks for further evaluation and care. Patient's meds were sent to the pharmacy electronically. Patient was hemodynamically stable on discharge. Operations or Procedures [place] [id number] Ph: [phone] DIAGNOSTIC IMAGING Diagnostic Imaging Report : [id number] Signed PATIENT: KENROY MACIAS LACCT: [id number] UNIT: [id number] : 1980 LOC: ER ROOM / BED: / AGE / SEX: 44 / F ADM STATUS: REG ER SERVICE [id number] ORDERING PHYSICIAN: FIDELIA VANESSA MD PROCEDURE(s): ABPL - CT AB PEL WO CON-NO ORAL OR IV REASON: Low AP, N/V/D, short bowel syndrome s/p partial colectomy ORDER NUMBER(s): [id number], ACCESSION NUMBER(s): [id number] Exam: CT CT AB PEL WO CON-NO ORAL OR IV History: Low AP, N/V/D, short bowel syndrome s/p partial colectomy Comparison Study: None TECHNIQUE: Multidetector CT of the abdomen and pelvis without IV contrast. Axial, coronal and sagittal multiplanar reformats were obtained from the axial data set by the technologist. Radiation Dose Information: CT Dose: CTDI volume is 56.35 mGy. Dose-length product is 2325.94 mGy*cm FINDINGS: Bibasilar atelectasis. Partially visualized heart is unremarkable. Mild hepatomegaly with hepatic steatosis. The gallbladder is decompressed. Spleen, pancreas and adrenal glands unremarkable. Kidneys, ureters and urinary bladder unremarkable. Uterus is unremarkable. 3.1 cm left ovarian cyst with additional sub 2 cm dominant follicles. Stomach is unremarkable. Small bowel loops unremarkable. Appendix is not definitely visualized. Rectal and rectosigmoid wall thickening. Moderate to large amount of mainly liquid stool and gas within the colon. Postsurgical changes of partial right hemicolectomy with anastomosis of the right upper abdominal quadrant. Distention of the proximal large bowel up to 7.4 cm. Metallic focus with Streak artifact is noted over the right lower abdominal quadrant which appears to be extra luminal. No evidence of intraperitoneal free air or free fluid. No evidence of aortic aneurysm. No significant lymphadenopathy. Tiny fat containing umbilical hernia. Nonspecific midline upper abdominal nodular skin thickening. Soft tissues are otherwise unremarkable. No evidence of acute osseous abnormalities. Metallic density with Streak artifact is noted over the right lower abdominal quadrant which appears to be extra luminal. IMPRESSION: Rectal wall thickening. Correlate for proctitis. Moderate to large amount of liquid stool and gas within the colon. Correlate for diarrheal state. Postsurgical changes of right hemicolectomy with distention of the large bowel of the hepatic flexure up to 7.4 cm. Left ovarian cyst. ATED BY: CAROL LOVE DO DICTATED DATE/TIME: 02/08/25 150 SIGNED BY: CAROL LOVE DO SIGNED DATE/TIME: 02/08/25 150 CC: [place] [id number] Ph: [phone] DIAGNOSTIC IMAGING Diagnostic Imaging Report : [id number] Signed PATIENT: KENROY MACIAS LACCT: [id number] UNIT: [id number] : 1980 LOC: ER ROOM / BED: / AGE / SEX: 44 / F ADM STATUS: REG ER SERVICE 1358 ORDERING PHYSICIAN: FIDELIA VANESSA MD PROCEDURE(s): HWOCT - HEAD WITHOUT CONTRAST REASON: Dizzy,left periorbital NOE,intermittent L eye blurred vision ORDER NUMBER(s): [id number], ACCESSION NUMBER(s): [id number] EXAM: CT HEAD WITHOUT CONTRAST INDICATION: Dizzy,left periorbital NOE,intermittent L eye blurred vision TECHNIQUE: CT of the head without intravenous contrast. Radiation Dose : 1. Head: CT Dose: CTDI volume is 56.35 mGy. Dose-length product is 2325.94 mGy*cm The dose indicators for CT are the volume Computed Tomography (CT) Dose Index (CTDIvol) and the Dose Length Product (DLP), and are measured in units of mGy and mGy-cm, respectively. These indicators are not patient dose, but values generated from the CT scanner acquisition factors. The report includes radiation exposure data for exposures received during this examination. COMPARISON: None FINDINGS: There is no evidence of acute intracranial hemorrhage, extra-axial collection, mass effect, midline shift, herniation or hydrocephalus. The ventricles, sulci and cisterns are age appropriate. The smith-white differentiation is intact. The visualized paranasal sinuses and mastoid air cells are clear. The surrounding soft tissues and osseous structures are unremarkable. IMPRESSION: No acute intracranial abnormality. Radiation optimization: All CT scans at this facility use at least one of these dose optimization techniques: automated exposure control mA and/or kV adjustment per patient size (includes targeted exams where dose is matched to clinical indication) or iterative reconstruction. ATED BY: ALOK MUNOZ MD DICTATED DATE/TIME: 02/08/251446 SIGNED BY: ALOK MUNOZ MD SIGNED DATE/TIME: 02/08/251446 CC: [place] [id number] Ph: [phone] DIAGNOSTIC IMAGING Diagnostic Imaging Report : [id number] Signed PATIENT: KENROY MACIAS LACCT: [id number] UNIT: [id number] : 1980 LOC: OVERFLOW ROOM / BED: 1009-ER / A AGE / SEX: 44 / F ADM STATUS: ADM IN SERVICE 1130 ORDERING PHYSICIAN: OSVALDO ALMONTE PROCEDURE(s): KUB - KUB ABDOMEN SINGLE VIEW REASON: abd pain ORDER NUMBER(s): [id number], ACCESSION NUMBER(s): [id number] Exam: XY KUB ABDOMEN SINGLE VIEW Indication: abd pain Comparison: CT CT AB PEL WO CON-NO ORAL OR IV on DOS: 02/08/25 Technique: 1 radiographic views of the abdomen. Findings: Nonspecific bowel-gas pattern. There is no definite evidence for pneumoperitoneum. No abnormal calcifications noted. Impression: Nonspecific bowel-gas pattern. Workstation: [employer] DICTATED BY: ALOK MUNOZ MD DICTATED DATE/TIME: 02/09/25634 SIGNED BY: ALOK MUNOZ MD SIGNED DATE/TIME: 02/09/25634 CC: Condition at Discharge: Stable Final Diagnosis/Problems List # acute proctitis # acute gastroenteritis likely infectious # history of recurrent colonic polyp # intractable abdominal pain with nausea and vomiting likely due to above # history of TIA # short bowel syndrome # ovarian cyst # pre DM # hypertension-not on any any medication # hyperlipidemia-not on any medication Discharge Disposition: Home Discharge Instruct/Medications Diet: Cardiac 2g Na,low cholest, See Comment Diet comment: Full liquid diet for 5 days then gradually advance as tolerated Low-fat diet Activity: No Restrictions, As Tolerated Follow Up/Referral: Please follow up with the primary care physician in 1-2 weeks Please follow up with the sales enablement consultant Dr. Wu in 2-3 weeks Please maintain blood pressure log at home and bring it to your primary care doctor's office to be reviewed STOP CONTROL PILL Medications: Augmentin 500 mg p.o. b.i.d. for 5 days Pantoprazole 40 mg p.o. daily Scheduled Amoxicillin & Pot Clavulanate (Augmentin), 1 TAB PO BID Ergocalciferol (Vitamin D 80722 Unit), 50,000 UNIT PO Q7D Ergocalciferol (Vitamin D 46809 Unit), 50,000 UNIT PO weekly Pantoprazole Sodium Sesquihydr (Pantoprazole Sodium), 40 MG PO DAILY Scheduled PRN Ibuprofen Micronized (Ibuprofen), 800 MG PO Q6HPRN PRN for MILD PAIN, (Reported) Discharge Statement: "Patient was advised to return to the ER or call 911 if any headaches, dizziness, shortness of breath, chest pain, abdominal pain, bleeding, fevers, or worsening of medical condition. Patient was counseled about treatment plan, medications, possible side effects, patientverbalized understanding. All questions were answered to the best of my ability. This discharge took greater then 30 minutes in planning, reviewing documentation, counseling the patient, and discussing with other team members." ASSESSMENT ASSESSMENT Assessment LAUREN RODRIGUEZ RESIDENT Feb 10, 2025 06:44
[2025-02-10 06:47] LABS: BUN/Creatinine Ratio 10.3 (10.0-20.0)
[2025-02-10 06:48] LABS: Magnesium 1.9 mg/dL (1.6-2.6)
[2025-02-10] MEDS: SODIUM CHLORIDE 0.9% 1,000 ML IV ONE (06:49)
[2025-02-10 06:51] LABS: Blood Urea Nitrogen 7 mg/dL (9-23); Glucose 133 mg/dL (74-106); Potassium 3.3 mmol/L (3.5-5.1)
[2025-02-10] MEDS ORDERED: ERGO1CAP23 PO ×2 (08:56)
[2025-02-10] MEDS ORDERED: AMOX500T86 PO (08:56)
[2025-02-10] MEDS ORDERED: PANT40T PO (08:56)
[2025-02-10 09:00] VITALS: BP 111/46; PULSE 83; RESP 16; TEMP 98.3; O2SAT 96
[2025-02-10 12:33] VITALS: BP 113/71; PULSE 78; RESP 17; TEMP 98.3; O2SAT 98
[2025-02-10] MEDS: POTASSIUM CHL 20 Meq TABLET PO ONE (12:41)
--- NOTE | 2025-02-10 17:12 | DVHPN2 ---
Progress Note - Dictate Date Seen: Feb 10, 2025 (Late entry Pt seen at 12 noon) Medical Necessity Reason Pt with a Central, PICC or Fol: No Subjective No new complaints Pt is feeling better Passing gas Abd pain improved vital signs Vital Sign Date Time Temp Pulse Resp B/P (MAP) Pulse Ox O2 Delivery O2 Flow Rate FiO2 02/10/25 12:33 98.3 78 17 113/71 (85) 98 98.3 02/10/25 08:00 Room Air* 0 21 Total Intake and Output 02/09/25 02/09/25 02/10/25 15:00 23:00 07:00 Intake Total 150 ml 100 ml 500 ml Balance 150 ml 100 ml 500 ml objective HEENT- PEERLA, extraocular muscles are intact, no discharge Cardiovascular- S1-S2 audible, rate and rhythm regular, no murmur Respiratory- CTAB, no wheeze or rhonchi Gastrointestinal-soft bowel sound+. Nondistended Musculoskeletal-no acute joint swelling or tenderness or redness Lower extremity- no leg edema Neurological- cranial nerves intact, no acute dysarthria or dysphagia Psychiatry- denies depression or SI or HI Skin- no acute rash or purpura laboratory and microbiology Laboratory Tests 02/10/25 05:47 Test 02/10/25 05:47 Range/Units Serum Glucose 133 H 74-106 mg/dL Abd X Ray Impression: Nonspecific bowel-gas pattern. Problems(with codes): (1) Abdominal pain of unknown etiology (2) Enteritis (3) Dehydration (4) Headache Prognosis Assessment and plan Pt has been cleared by surgical consult Possible acute gastroenteritis with ileus ; viral syndrome with headache Patient has been started on Protonix and IV antibiotics History of right hemicolectomy for a benign colonic mass Recent negative colonoscopy about a year ago in January 2024 with intact ileocolonic anastomosis There was no known history of a short-bowel syndrome as she did not have any significant small-bowel resection Start with clear liquid diet advance as tolerated Patient has been instructed to follow up with me as an outpatient in 2-4 weeks to discuss further management and possible outpatient elective colonoscopy Plan discussed with: Patient, Other (Dr Elizalde) SAMMIE WEAVER MD Feb 10, 2025 17:12
== END 2025-02-10 13:30 | disposition home or self-care (01) | DRG 254 ==
LOC: ER 13:31 → OVERFLOW 22:09 → EAST 02-09 22:30
PROVIDERS: ADMIT Internal Medicine Geriatric Medicine; ATTEND Internal Medicine Geriatric Medicine
DX: K62.89 Other specified diseases of anus and rectum (principal); K90.829 Short bowel syndrome, unspecified; A09 Infectious gastroenteritis and colitis, unspecified; E78.5 Hyperlipidemia, unspecified; N83.202 Unspecified ovarian cyst, left side; K63.5 Polyp of colon; E86.0 Dehydration; I10 Essential (primary) hypertension; E03.9 Hypothyroidism, unspecified; K44.9 Diaphragmatic hernia without obstruction or gangrene; R73.03 Prediabetes; Z90.49 Acquired absence of other specified parts of digestive tract; Z86.73 Personal history of transient ischemic attack (TIA), and cerebral infarction without residual deficits; Z98.51 Tubal ligation status; Z80.8 Family history of malignant neoplasm of other organs or systems; Z88.5 Allergy status to narcotic agent; Z88.1 Allergy status to other antibiotic agents; Z91.041 Radiographic dye allergy status; Z81.8 Family history of other mental and behavioral disorders; Z80.0 Family history of malignant neoplasm of digestive organs; Z82.49 Family history of ischemic heart disease and other diseases of the circulatory system; Z83.3 Family history of diabetes mellitus; Z82.0 Family history of epilepsy and other diseases of the nervous system; Z80.3 Family history of malignant neoplasm of breast; Z85.038 Personal history of other malignant neoplasm of large intestine
CPT/HCPCS: 36415; 70450; 74018; 74176; 80048; 80053; 81001; 82306; 82607; 82746; 83036; 83605; 83735; 84443; 84484; 84702; 85025; 85652; 86141; 87040; 96360; G0378; J0131; J1885; J2470; J2543; J3490